=== PATIENT | male | born 1955 | race Caucasian/White ===

== ENCOUNTER 2016-12-13 16:07 | Emergency (ER) ==
[2016-12-13 16:21] VITALS: BP 118/78; TEMP 97.1; BMI 22.1
--- NOTE | 2016-12-13 17:36 | ED.PDOC ---
General ED Provider: Dr. CASSIE GA Chief Complaint: Finger Laceration Stated Complaint: Accidentally cut his left thumb on dorsum of proximal phalanx. Unable to extend thumb at all since then. Sensation intact. Mode of Arrival: Walk-In Information Source: Patient Past Medical History - Social History Smoking Status: Current every day smoker, Heavy tobacco smoker Hx Substance Use: No Alcohol Screening: Occasionally - Immunizations Tetanus Shot up to Date: Yes (1 year) Course - Course Vital Signs: Temp Pulse Resp BP Pulse Ox 12/13/16 16:11 97.1 F L 86 20 118/78 97 Departure - Departure Allergies/Adverse Reactions: Allergies No Known Allergies Allergy (Unverified 12/13/16 17:45)
[2016-12-13] MEDS ORDERED: LIDOCAINE HCL 1% SDV ONE (17:43)
[2016-12-13] MEDS ORDERED: LIDOCAINE HCL 1% SDV IM STA (17:44)
--- NOTE | 2016-12-13 18:05 | ED.PDOC ---
General ED Provider: Dr. CASSIE GA Chief Complaint: Finger Laceration Stated Complaint: Accidentally cut his left thumb on dorsum of proximal phalanx. Unable to extend thumb at all since then. Sensation intact. Time Seen by Physician: 17:45 Mode of Arrival: Walk-In Information Source: Patient Exam Limitations: No limitations Nursing and Triage Documentation Reviewed and Agree: Yes Skin Complaint Exam - Laceration/Upper Ext. Complaint/Exam Location of Injury: Left (thumb) Mechanism of Injury: Laceration Onset/Duration: 2 hours ago Symptoms Are: Still present Initial Severity: Moderate Current Severity: Moderate Aggravating: Movement Alleviating: Compression Associated Signs and Symptoms: Reports: Numbness (unable to unflex thumb) Related History: Reports: Occupational injury Differential Diagnoses: Laceration, Tendon Laceration Review of Systems - Review Of Systems Constitutional: Reports: No symptoms Musculoskeletal: Reports: Other (cannot unflex thumb) Skin: Reports: Other (laceration of left thumb base of proximal phalanx dorsal side) Neurological: Reports: No symptoms All Other Systems: Reviewed and Negative Past Medical History - Past Medical History Previously Healthy: Yes Endocrine: Reports: None Cardiovascular: Reports: None Respiratory: Reports: None Hematological: Reports: None Gastrointestinal: Reports: None Genitourinary: Reports: None Neuro/Psych: Reports: None Musculoskeletal: Reports: Back Pain (chronic secondary to DJD and DDD) Cancer: Reports: None - Surgical History General Surgical History: Reports: None - Family History Family History: Reports: Unknown - Social History Smoking Status: Current every day smoker, Heavy tobacco smoker Hx Substance Use: No Alcohol Screening: Occasionally Lives: Alone - Immunizations Tetanus Shot up to Date: Yes (1 year) Influenza Vaccine within 12 Months: No Pneumococcal Vaccine up to Date: No Physical Exam - Physical Exam Appearance: Well-appearing, No pain distress, Well-nourished Ill-appearing: None Pain Distress: None Musculoskeletal: Normal strength, No edema, No calf tenderness, Limited ROM ( left thimb flexed at MCP joint, cannot actively unflex. easily straightened passively.) Skin: Warm (2.5 cm laceration across base of thumb/s proximal phalanx on dorsal side. bleeding easily controlled with pressure. No neurologic compromise. not down to bone but no visible or palpable extensor tendons), Dry, Normal color Neurological: Sensation intact, Motor intact, Reflexes intact, Cranial nerves intact, Alert, Oriented Psychiatric: Affect appropriate, Mood appropriate Procedures - Laceration/Wound Repair No standard instances Wound Description: Linear Wound Length (cm): 2.5 cm Wound Width: narrow but gapes with traction Wound Depth: at least 0.5 cm Wound Explored: Clean Wound Irrigated: No Wound Prep: Hibiclens Anesthesia: Lidocaine Wound Margins: Flaps aligned Wound Repaired With: Sutures Suture Size and Type: 4-0 Number of Sutures: 5 (bleeding controlled) Layer Closure?: Yes Sterile Dressing Applied?: Yes Splint Applied?: No Sling Applied?: No Progress: wound dressed with topical antibiotic ointment and nonstick dressing and gauze Critical Care Note - Critical Care Note Total Time (mins): 0 Course - Course Orders, Labs, Meds: Orders Category Date Time Status Lidocaine HCl/Pf [Lidocaine HCl 1% Sdv] MEDS 12/13/16 17:43 Discontinued 5 ml .ROUTE .STK-MED ONE Lidocaine HCl/Pf [Lidocaine HCl 1% Sdv] MEDS 12/13/16 17:44 Discontinued 5 ml IM ONCE STA Medications Discontinued Medications Generic Name Dose Route Start Last Admin Trade Name Freq PRN Reason Stop Dose Admin Lidocaine HCl 5 ml 12/13/16 17:44 Lidocaine Hcl 1% Sdv IM 12/13/16 17:45 ONCE STA Vital Signs: Temp Pulse Resp BP Pulse Ox 12/13/16 16:11 97.1 F L 86 20 118/78 97 Departure - Departure Time of Disposition: 18:16 Disposition: HOME SELF-CARE Discharge Problem: Laceration of thumb with tendon involvement Qualifiers: Encounter type: initial encounter Laterality: left Qualified Code(s): S61.012A - Laceration without foreign body of left thumb without damage to nail, initial encounter; S66.922A - Laceration of unspecified muscle, fascia and tendon at wrist and hand level, left hand, initial encounter; S66.922A - Laceration of unspecified muscle, fascia and tendon at wrist and hand level, left hand, initial encounter Instructions: Finger Laceration (ED), Tendon Laceration (ED) Condition: Good Pt referred to PMD for follow-up: Yes (Follow up with orthopedic surgeon: hand specialist RE: cut tendon) Allergies/Adverse Reactions: Allergies No Known Allergies Allergy (Unverified 12/13/16 17:45) Home Medications: Ambulatory Orders Acetaminophen with Codeine [Tylenol #3 Tab] 1 tab PO Q4H PRN #20 tablet Cephalexin [Keflex] 500 mg PO BID #14 capsule 12/13/16 Disposition Discussed With: Patient
== END 2016-12-13 18:35 | disposition home or self-care (01) ==
LOC: ED 16:07
DX: S61.012A Laceration without foreign body of left thumb without damage to nail, initial encounter (principal); S66.922A Laceration of unspecified muscle, fascia and tendon at wrist and hand level, left hand, initial encounter; F17.210 Nicotine dependence, cigarettes, uncomplicated; W45.8XXA Other foreign body or object entering through skin, initial encounter
CPT/HCPCS: 99283

== ENCOUNTER 2018-03-28 18:40 | Emergency (ER) ==
[2018-03-28 18:44] VITALS: BP 142/92; TEMP 97.7; BMI 22.8
--- NOTE | 2018-03-28 19:19 | ED.PDOC ---
General ED Provider: Dr. KISHA ORDAZ Chief Complaint: Penile Problem Stated Complaint: Patient is a 63 year old male who complains of swelling of his penis and scrotun for the past two days. He admits to using a new save or lotion recenlty. Denies any discharge and is still able to void well. Time Seen by Physician: 19:13 Mode of Arrival: Walk-In Information Source: Patient Exam Limitations: No limitations Nursing and Triage Documentation Reviewed and Agree: Yes Does patient meet sepsis criteria?: No System Inflammatory Response Syndrome: Not Applicable Sepsis Protocol: For patient's 13 years and over: Temp is 96.8 and below OR 101 and greater Pulse >90 BPM Resp >20/minute Acutely Altered Mental Status Are patient's symptoms suggestive of a new infection, such as: -Pneumonia -Skin, Soft Tissue -Endocarditis -UTI -Bone, Joint Infection -Implantable Device -Acute Abdominal Infection -Wound Infection -Meningitis -Blood Stream Catheter Infection -Unknown Complaint Exam - Complaint/Exam Patient Complains of: Reports: Scrotal swelling (and penile swelling ) Location of Pain: Reports: Penis Aggravating: Reports: None Alleviating: Reports: None Associated Signs and Symptoms: Reports: Penile swelling, Scrotal swelling (mild but better today than yesterday). Denies: Dysuria, Constipation, Nausea, Vomiting, Penile discharge, Decreased urine output, Increased urine frequency Testicular Torsion Risk Factors: Reports: None Surgical Obstruction Risk Factors: Reports: None Related Surgical History: Reports: None Abdominal Findings: Present: Other (swelling of the whole penis from the base to the foresking. Glans appears to be spared. ) Genitalia Exam: Present: Normal findings Differential Diagnoses: Other (allergic reaction to lotion/cream rece) Review of Systems - Review Of Systems Constitutional: Reports: No symptoms Eyes: Reports: No symptoms Ears, Nose, Mouth, Throat: Reports: No symptoms Respiratory: Reports: No symptoms Cardiac: Reports: No symptoms GI: Reports: No symptoms : Reports: No symptoms Musculoskeletal: Reports: No symptoms Skin: Reports: Other (penile swelling ) Neurological: Reports: Anxiety Endocrine: Reports: No symptoms Hematologic/Lymphatic: Reports: No symptoms All Other Systems: Reviewed and Negative Past Medical History - Past Medical History Previously Healthy: Yes Endocrine: Reports: None Cardiovascular: Reports: None Respiratory: Reports: None Hematological: Reports: None Gastrointestinal: Reports: None Genitourinary: Reports: None Neuro/Psych: Reports: None Musculoskeletal: Reports: Back Pain (chronic secondary to DJD and DDD) Cancer: Reports: None - Surgical History General Surgical History: Reports: None - Family History Family History: Reports: Unknown - Social History Smoking Status: Current every day smoker, Heavy tobacco smoker Hx Substance Use: No Alcohol Screening: Occasionally - Immunizations Tetanus Shot up to Date: Yes Influenza Vaccine within 12 Months: No Pneumococcal Vaccine up to Date: No Physical Exam - Physical Exam Appearance: Well-appearing Pain Distress: Mild Neck: Supple Respiratory: Airway patent, Breath sounds clear, Breath sounds equal, Respirations nonlabored Cardiovascular: RRR, Pulses normal, No rub, No murmur GI/: Soft, Bowel sounds normal, No Organomegaly, Tender (mild on the swollen penis ) Musculoskeletal: Normal strength, ROM intact, No edema, No calf tenderness Skin: Warm, Dry, Normal color Neurological: Sensation intact, Motor intact, Reflexes intact, Cranial nerves intact, Alert, Oriented Psychiatric: Anxious Critical Care Note - Critical Care Note Total Time (mins): 0 Course - Course Orders, Labs, Meds: Orders Category Date Time Status UA [URINALYSIS C & S IF INDICATED] Stat LAB 03/28/18 19:13 Uncollected Vital Signs: Temp Pulse Resp BP Pulse Ox 03/28/18 18:41 97.7 F 98 H 18 142/92 H 97 Departure - Departure Time of Disposition: 20:15 Disposition: HOME SELF-CARE Discharge Problem: Allergic reaction to chemical substance Qualifiers: Encounter type: initial encounter Injury intent: accidental or unintentional Qualified Code(s): T65.91XA - Toxic effect of unspecified substance, accidental (unintentional), initial encounter Angioedema Qualifiers: Encounter type: initial encounter Qualified Code(s): T78.3XXA - Angioneurotic edema, initial encounter Instructions: Antihistamine (By mouth), Angioedema (ED) Condition: Stable Pt referred to PMD for follow-up: Yes IPMP verified?: No Additional Instructions: Take Medications as prescribed DO NOT USE THE SALVE OR CREAM YOU USED ON YOUR PENIS follow up with PCP in 3 days Prescriptions: Epinephrine [Epipen Twinpak] 0.3 mg IM PRN PRN #1 pen.injctr PRN Reason: Allergy Symptoms Loratadine [Claritin] 10 mg PO DAILY #20 tab.rapdis Prednisone 20 mg PO DAILYWM #5 tablet Ranitidine HCl [Zantac] 150 mg PO BIDAC #30 tablet Allergies/Adverse Reactions: Allergies No Known Allergies Allergy (Unverified 03/28/18 18:44) Home Medications: Ambulatory Orders Epinephrine [Epipen Twinpak] 0.3 mg IM PRN PRN #1 pen.injctr 03/28/18 Loratadine [Claritin] 10 mg PO DAILY #20 tab.rapdis 03/28/18 Prednisone 20 mg PO DAILYWM #5 tablet 03/28/18 Ranitidine HCl [Zantac] 150 mg PO BIDAC #30 tablet 03/28/18 Disposition Discussed With: Patient, Family
[2018-03-28] MEDS ORDERED: CLARITIN PO STA (19:24)
[2018-03-28] MEDS ORDERED: ZANTAC PO STA (19:24)
[2018-03-28] MEDS ORDERED: SOLU-MEDROL 125 MG IM STA (19:24)
[2018-03-28] MEDS ORDERED: EPINEPHRINE 1 MG/ML AMP IM STA (19:25)
== END 2018-03-28 20:10 | disposition home or self-care (01) ==
LOC: ED 18:40
DX: R39.9 Unspecified symptoms and signs involving the genitourinary system (principal); F41.9 Anxiety disorder, unspecified; F17.210 Nicotine dependence, cigarettes, uncomplicated; T65.91XA Toxic effect of unspecified substance, accidental (unintentional), initial encounter; T78.3XXA Angioneurotic edema, initial encounter
CPT/HCPCS: 96372; 99282

== ENCOUNTER 2018-10-23 13:17 | Outpatient (CLI) ==
[2018-10-23 13:30] VITALS: BMI 22.1
== END 2018-10-23 13:22 | disposition critical access hospital (66) ==
LOC: AMBL 13:17
PROVIDERS: ATTEND Internal Medicine
DX: S99.911A Unspecified injury of right ankle, initial encounter (principal); W17.89XA Other fall from one level to another, initial encounter

== ENCOUNTER 2018-10-23 13:26 | Emergency (ER) ==
[2018-10-23 13:30] VITALS: BP 114/72; TEMP 96.9; BMI 22.1
--- NOTE | 2018-10-23 14:28 | DI ---
EXAM: Right ankle three views HISTORY: Injury, pain FINDINGS: There is a comminuted calcaneal fracture involving most of the area of the bone with mild d isplacements and there is intra-articular extension both anteriorly and superiorly. The joints remai n grossly intact. No other fractures are seen. Joints of the ankle proper are within normal limits IMPRESSION: 1. Comminuted calcaneal fracture.
--- NOTE | 2018-10-23 14:29 | DI ---
EXAM: RIGHT FOOT, 3 VIEWS HISTORY: Injury, pain FINDINGS: There is a comminuted calcaneal fracture with the fractures minimally displaced. There is intra-articular extension into the superior and anterior joints. Joints remain grossly intact. No other injuries are seen. IMPRESSION: 1. Calcaneal fracture.
--- NOTE | 2018-10-23 15:01 | ED.PDOC ---
General ED Provider: Dr. OZ KUMARI Chief Complaint: Ankle Pain/Injury Stated Complaint: RIGHT FOOT PAIN AFTER FALLING OR STEPPING IN TO A HOLE Time Seen by Physician: 13:30 (SEEN WITH [facility] LUMBAR OR KNEE PAIN) Mode of Arrival: Ambulance Information Source: Patient Exam Limitations: No limitations Primary Care Provider: RAMU VICTOR Nursing and Triage Documentation Reviewed and Agree: Yes Does patient meet sepsis criteria?: No System Inflammatory Response Syndrome: Not Applicable Sepsis Protocol: For patient's 13 years and over: Temp is 96.8 and below OR 101 and greater Pulse >90 BPM Resp >20/minute Acutely Altered Mental Status Are patient's symptoms suggestive of a new infection, such as: -Pneumonia -Skin, Soft Tissue -Endocarditis -UTI -Bone, Joint Infection -Implantable Device -Acute Abdominal Infection -Wound Infection -Meningitis -Blood Stream Catheter Infection -Unknown Musculoskeletal Complaint Exam - Ankle/Foot Complaint/Exam Location of Injury: Reports: Right, Foot Mechanism of Injury: Reports: Trauma Onset/Duration: 1 HR AGO Symptoms Are: Reports: Still present Onset of Pain: Reports: Immediate Initial Severity: Moderate Current Severity: Moderate Location: Reports: Discrete (FOOT ) Character: Reports: Aching, Spasmodic, Stiffness Alleviating: Reports: Rest Aggravating: Reports: Movement, Prolonged standing Able to Bear Weight: Yes Associated Signs and Symptoms: Denies: Swelling, Redness, Bruising, Fever, Weakness, Numbness, Tingling Gout Risk Factors: Reports: None Related Surgical History: Reports: None Lower Extremity Findings: Present: Limited range of motion. Absent: Swelling, Ecchymosis, Rotation, Ligamentous instability, Laceration, Other joint pain, Foreign body, Tenderness Achilles Tendon Abnormality: No Tenderness: Present: Heel, Midfoot Differential Diagnosis: Closed Fracture Review of Systems - Review Of Systems Constitutional: Reports: No symptoms Eyes: Reports: No symptoms Ears, Nose, Mouth, Throat: Reports: No symptoms Respiratory: Reports: No symptoms Cardiac: Reports: No symptoms GI: Reports: No symptoms : Reports: No symptoms Musculoskeletal: Reports: Joint pain (FOOT HEEL) Skin: Reports: No symptoms Neurological: Reports: No symptoms Endocrine: Reports: No symptoms Hematologic/Lymphatic: Reports: No symptoms All Other Systems: Reviewed and Negative Past Medical History - Past Medical History Previously Healthy: Yes Endocrine: Reports: None Cardiovascular: Reports: None Respiratory: Reports: None Hematological: Reports: None Gastrointestinal: Reports: None Genitourinary: Reports: None Neuro/Psych: Reports: None Musculoskeletal: Reports: Back Pain (chronic secondary to DJD and DDD) Cancer: Reports: None - Surgical History General Surgical History: Reports: None - Family History Family History: Reports: Unknown - Social History Smoking Status: Current every day smoker Hx Substance Use: No Alcohol Screening: None - Immunizations Tetanus Shot up to Date: Yes Influenza Vaccine within 12 Months: No Pneumococcal Vaccine up to Date: No Physical Exam - Physical Exam Appearance: Well-appearing, No pain distress, Well-nourished Eyes: VANESSA, EOMI, Conjunctiva clear ENT: Ears normal, Nose normal, Oropharynx normal Respiratory: Airway patent, Breath sounds clear, Breath sounds equal, Respirations nonlabored Cardiovascular: RRR, Pulses normal, No rub, No murmur GI/: Soft, Nontender, No masses, Bowel sounds normal, No Organomegaly Musculoskeletal: Limited ROM (RIGHT FOOT) Skin: Warm, Dry, Normal color Neurological: Sensation intact, Motor intact, Reflexes intact, Cranial nerves intact, Alert, Oriented Psychiatric: Affect appropriate, Mood appropriate Interpretation - Radiology Interpretation Radiology Interpretation By: Radiologist Radiology Results: Positive (CALCANEUS) Critical Care Note - Critical Care Note Total Time (mins): 0 Course - Course Orders, Labs, Meds: Orders Category Date Time Status ANKLE, RIGHT MIN 3 VIEWS Stat RADS 10/23/18 13:42 Completed FOOT, RIGHT 3 VIEWS Stat RADS 10/23/18 13:42 Completed Vital Signs: Temp Pulse Resp BP Pulse Ox 10/23/18 13:26 96.9 F L 76 16 114/72 96 Departure - Departure Time of Disposition: 15:02 Disposition: HOME SELF-CARE Discharge Problem: Calcaneal fracture Qualifiers: Encounter type: sequela Calcaneus location: unspecified portion of calcaneus Fracture type: closed Laterality: right Instructions: Foot Fracture in Adults (ED) Condition: Good Pt referred to PMD for follow-up: Yes IPMP verified?: No Additional Instructions: Please call your Family Physician as soon as possible to schedule a follow-up appointment.FOLLOW UP WITH DOCTOR OR [facility] NO WEIGHT BEARING USE THE CRUTCHES. THIS BONE DOES NOT HEAL WELL BE CAREFULL DO NOT SMOKE SMOKING MESSES UP THE HEELING PROCESS. BE CAREFULL, DO FOLLOW UP . RETURN NEEDED . Allergies/Adverse Reactions: Allergies No Known Allergies Allergy (Unverified 03/28/18 18:44) Home Medications: Ambulatory Orders 1 [No Reported Medications] 10/23/18 Disposition Discussed With: Patient
== END 2018-10-23 15:28 | disposition home or self-care (01) ==
LOC: ED 13:26
DX: S92.061A Displaced intraarticular fracture of right calcaneus, initial encounter for closed fracture (principal); W17.2XXA Fall into hole, initial encounter; F17.210 Nicotine dependence, cigarettes, uncomplicated
CPT/HCPCS: 99283

== ENCOUNTER 2018-10-24 19:39 | Outpatient (CLI) ==
[2018-10-23 13:30] VITALS: BMI 22.1
== END 2018-10-24 19:57 | disposition short-term general hospital (02) ==
LOC: AMBL 19:39
PROVIDERS: ATTEND Internal Medicine Geriatric Medicine
DX: S82.891D Other fracture of right lower leg, subsequent encounter for closed fracture with routine healing (principal); W19.XXXD Unspecified fall, subsequent encounter